=== PATIENT | female | born 1975 | race Asian ===

== ENCOUNTER 2017-03-25 21:28 | Emergency (ER) | payer MEDICARE, MEDICAID ==
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
[2017-03-25 22:06] LABS: BASOPHIL # 0.1 K/uL (0.0-0.2); BASOPHIL % 1.1 %; EOSINOPHIL # 0.1 K/uL (0.0-0.5); EOSINOPHIL % 1.9 %; HEMOGLOBIN 13.3 g/dL (10.0-15.0); IMMATURE GRANULOCYTE % 0.2 %; LYMPHOCYTE # 2.6 K/uL (0.8-4.0); LYMPHOCYTE % 49.8 %; MCH 30.9 pg (27.0-34.0); MCHC 34.1 gm/dL (32.0-36.5); MCV 90.5 fl (83.0-98.0); MONOCYTE # 0.4 K/uL (0.0-1.0); MONOCYTE % 6.8 %; NEUTROPHIL # (ANC) 2.1 K/uL (1.8-7.8); NEUTROPHIL % 40.2 %; NRBC % 0 /100WBC (0-0.00); PLATELET COUNT 322 K/uL (150-450); RBC 4.31 M/uL (3.50-5.50); RDW-CV 12.9 % (11.9-14.6); WBC 5.3 K/uL (4.0-11.0)
[2017-03-25 22:26] LABS: ALBUMIN 3.5 gm/dL (3.5-5.0); ALK PHOS 56 IU/L (33-138); ALT 52 IU/L (12-78); ANION GAP 12.8 (10.0-19.0); AST 34 IU/L (10-40); BLOOD UREA NITROGEN 12 mg/dL (6-24); CALCIUM 8.5 mg/dL (8.5-10.5); CHLORIDE 112 mMol/L (96-110); CO2 21 mMol/L (22-32); ESTIMATED GFR (MDRD EQUATION) > 60; POTASSIUM 3.8 mMol/L (3.7-5.1); SODIUM 142 mMol/L (135-145); TOTAL BILIRUBIN 0.4 mg/dL (0.0-1.5)
[2017-03-25 22:29] LABS: BILIRUBIN URINE NEGATIVE (NEGATIVE); BLOOD URINE NEGATIVE /UL (NEGATIVE); COLOR URINE YELLOW (YELLOW); GLUCOSE URINE NEGATIVE (NEGATIVE); KETONE URINE NEGATIVE (NEGATIVE); LEUKOCYTES URINE 100 /UL (NEGATIVE); NITRITE URINE POSITIVE (NEGATIVE); PROTEIN URINE 30 mg/dL (NEGATIVE); TURBIDITY URINE 2+ (CLEAR); UROBILINOGEN URINE 1 mg/dL (NORMAL)
[2017-03-25 22:41] LABS: BACTERIA URINE MANY (NEGATIVE); EPITHELIAL URINE 0-2 #/HPF (NEGATIVE); MUCUS URINE 2+ (NEGATIVE); RBC URINE RARE #/HPF (NEGATIVE)
[2017-03-25 22:50] LABS: AMPHETAMINE POSITIVE (NEGATIVE); BARBITURATE NEGATIVE (NEGATIVE); COCAINE NEGATIVE (NEGATIVE); OPIATES NEGATIVE (NEGATIVE)
[2017-04-18] MEDS ORDERED: NEURONTIN300 MG PO (02:02)
[2017-04-18] MEDS ORDERED: CARAFATE1 GM PO (02:03)
[2017-04-18] MEDS ORDERED: BENZTROPINE MESY2 MG PO (02:04)
[2017-04-18] MEDS ORDERED: GUANFACINE HCL2 MG PO (02:06)
[2017-04-18] MEDS ORDERED: NITROSTAT 0.40.4 MG SL (02:07)
[2017-04-18] MEDS ORDERED: INVEGA6 MG PO (02:09)
[2017-04-18] MEDS ORDERED: TOPAMAX50 MG PO (02:10)
[2017-04-18] MEDS ORDERED: LASIX20 MG PO (02:12)
[2017-04-18] MEDS ORDERED: (DPS FOR ANTIVE25 MG PO (02:13)
[2017-04-18] MEDS ORDERED: PRILOSEC20 MG PO (02:14)
[2017-04-18] MEDS ORDERED: EPIPEN-JR0.15 MG SUB-Q (02:21)
[2017-04-18] MEDS ORDERED: LOPRESSOR25 MG PO (02:22)
[2017-04-18] MEDS ORDERED: ASPIRIN325 MG PO (02:25)
[2017-04-18] MEDS ORDERED: KEPPRA500 M1 PO (02:26)
[2017-04-18] MEDS ORDERED: STRATTERA60 MG PO (02:59)
[2017-04-18] MEDS ORDERED: SAPHRIS10 MG SL (03:00)
== END 2017-03-25 23:05 | disposition disaster alternative care site (69) ==
LOC: GMED 21:28
PROVIDERS: Emergency Medicine
PROC: 0T9B70Z Drainage of Bladder with Drainage Device, Via Natural or Artificial Opening (ICD-10-PCS; principal; 2017-03-25)
DX: N39.0 Urinary tract infection, site not specified (principal); F15.129 Other stimulant abuse with intoxication, unspecified; F17.210 Nicotine dependence, cigarettes, uncomplicated; F20.9 Schizophrenia, unspecified; F31.9 Bipolar disorder, unspecified; Z79.899 Other long term (current) drug therapy; Z91.011 Allergy to milk products; Z88.8 Allergy status to other drugs, medicaments and biological substances
CPT/HCPCS: G0480

== ENCOUNTER 2017-04-20 14:22 | Observation (INO) | payer MEDICARE, MEDICAID ==
[~2017-04-20] VITALS: Ht 152.4 cm; Wt 59.4 kg
--- NOTE | ~2017-04-20 | HP ---
PATIENT'S NAME: SIOBHAN CUNNINGHAM [facility] AGE: 42 Y [address] ROOM: [place] [address] LOCATION: [facility] ADMIT DATE: 04/20/2017 History & Physical DISCHARGE DATE: FAMILY PHYSICIAN: PHYSICIAN, UNKNOWN ATTENDING PHYSICIAN: Cesar Mcallister DATE OF SERVICE: CHIEF COMPLAINT: Chest pain. HISTORY OF PRESENTING ILLNESS: This 42-year-old female with a dubious history of coronary artery disease status post PCI with stenting was transferred to [facility] from [facility] with a chief complaint of chest pain. She was admitted there for apparent suicidal ideations a couple of days ago. At some point, she began to complain of chest pain and was transferred to our emergency room for definitive evaluation and management. On her arrival here, she was lethargic but arousable. She did complain of chest pain, but was not really able to characterize it. She did admit to me that it was like pain she had had with "heart attack" in the past. She was unable to recount for me where she received cardiac care. Presently, her pain seems to be getting "better." The patient is a very poor historian. She does respond briskly to noxious stimuli, but unable to provide many comprehensible answers to my questions. She does complain of headache pain, complains of dizziness and nausea, but also reports feeling hungry. She also complains of diffuse scotomata which "come and go." She has not had any problems with chewing or swallowing. She denies heartburn or dyspepsia. Chest pain is in the middle of her chest but she cannot characterize it beyond that. She denies shortness of breath or cough. No abdominal pain. She has been stooling regularly and denies any dysuria, frequency, urgency, or hematuria. No numbness or tingling in her extremities or any associated physical or constitutional complaints. PAST MEDICAL HISTORY: ALLERGIES: LAMICTAL AND LACTOSE. ILLNESSES: 1. Paranoid-type schizophrenia. 2. Bipolar disorder. 3. Polysubstance abuse. 4. Questionable history of coronary artery disease status post PCI with PATIENT'S NAME: SIOBHAN CUNNINGHAM [facility] AGE: 42 Y [address] ROOM: [place] [address] LOCATION: [facility] ADMIT DATE: 04/20/2017 History & Physical DISCHARGE DATE: FAMILY PHYSICIAN: PHYSICIAN, UNKNOWN ATTENDING PHYSICIAN: Cesar Mcallister 5. Self-reported history of breast cancer, status post mastectomy (she still has her breasts). 6. Chronic dyspepsia. 7. Essential hypertension. 8. Lower extremity edema. CURRENT MEDICATIONS: 1. Gabapentin 300 mg p.o. q.i.d. 2. Carafate 1 g p.o. q.i.d. 3. Cogentin 2 mg p.o. b.i.d. 4. Guanfacine 2 mg p.o. at bedtime. 5. Nitroglycerin p.r.n. 6. Invega 6 mg p.o. q. day. 7. Topamax 50 mg p.o. q.a.m. 8. Lasix 20 mg p.o. q. day. 9. Meclizine 25 mg p.o. t.i.d. 10. Prilosec 20 mg p.o. b.i.d. 11. Lopressor 25 mg p.o. b.i.d. 12. Aspirin 325 mg p.o. t.i.d. 13. Keppra 1000 mg p.o. q. day. 14. Atomoxetine 60 mg p.o. at bedtime. 15. Saphris 10 mg p.o. at bedtime. FAMILY HISTORY: Negative for heart attack or stroke. SOCIAL HISTORY: She is and lives in [place], [place]. She is currently disabled. She has a significant history of polysubstance use and abuse including methamphetamine, tobacco in the form of cigarettes, and marijuana. She cannot quantify her usage of any of these drugs with me. REVIEW OF SYSTEMS: As per HPI. All other organ systems reviewed and are negative. OBJECTIVE: VITAL SIGNS: Temperature 98.6, pulse 91, respirations 74, blood pressure 96/49, and O2 saturation 99% on room air. GENERAL: She is awake, but lethargic. She demonstrates some aversion type behavior. SKIN: Supple, benedict, warm, and dry. She has some acne, but there are no active skin rashes. There are some tattoos about the upper extremities. HEENT: Otherwise, normocephalic. Sclerae nonicteric. Pupils equal, round, and reactive to light and accommodation. Extraocular movements appear intact. PATIENT'S NAME: SIOBHAN CUNNINGHAM [facility] AGE: 42 Y [address] ROOM: [id number] [place], [place] [address] LOCATION: [facility] ADMIT DATE: 04/20/2017 History & Physical DISCHARGE DATE: FAMILY PHYSICIAN: PHYSICIAN, UNKNOWN ATTENDING PHYSICIAN: Cesar Mcallister Nasal turbinates normal in appearance. Oropharynx clear. Mucous membranes are pink and moist. Dentition is in very poor repair. NECK: Supple. No masses. No thyromegaly. No JVD. CHEST: Wall is symmetrical. HEART: Regular without murmurs. LUNGS: Clear bilaterally. No wheezes or crackles heard. ABDOMEN: Soft, nontender. Bowel sounds present. No mass or hepatosplenomegaly. GENITOURINARY: Not done. RECTAL: Not done. EXTREMITIES: Display no significant clubbing, cyanosis, or edema. NEUROLOGIC: Mentation is slowed. She is lethargic, but there are no focal deficits. She moves all extremities equally. LABORATORY AND X-RAY DATA: A 12-lead EKG shows no acute abnormalities. Chest x-ray shows no acute cardiopulmonary abnormalities. CBC showed a white blood cell count of 5.9, hemoglobin of 13.4, hematocrit 40.1, and platelets 283,000. Chemistries revealed BUN and creatinine of 14 and 1.0 respectively. Sodium and potassium of 142 and 3.8, chloride and CO2 are 110 and 25, calcium is 8.0, AST and ALT of 29 and 39, bilirubin is 0.3, magnesium is 2.2, and glucose is 99. PT and PTT are 10.0 and 25 respectively. Cardiac enzymes were negative with CPK 88, troponin I is less than 0.04, and CK-MB is less than 0.5. Ethanol, acetaminophen, and salicylic acid levels were all below limits of detectability. TSH was slightly low at 0.307. Urine drug screen, positive for amphetamines. ASSESSMENT AND PLAN: 1. Chest pain. We will admit for observation and trend cardiac enzymes. I placed her on the chest pain pathway. Her pain is improving and difficult to characterize. We will hold off on heparinization. We will also try to minimize opioid analgesic therapy. We will try to obtain old records regarding her history of coronary artery disease and percutaneous coronary intervention with stenting if they indeed exist. We will consider Cardiology consultation and cardiac stress testing tomorrow. 2. Essential hypertension. Appears to be adequately controlled. We will monitor and try to make adjustments as necessary. 3. Gastroesophageal reflux disease. Historically controlled and currently asymptomatic on PPI therapy. 4. Bipolar disorder with history of suicidal ideation. We will probably need to follow q. 15 minute checks and plan a referral back to [facility] depending on a cardiac workup above. 5. Paranoid-type schizophrenia. We will plan to continue with her home antipsychotic regimen. 6. Polysubstance abuse. We will plan to utilize nicotine supplementation PATIENT'S NAME: SIOBHAN CUNNINGHAM [facility] AGE: 42 Y [address] ROOM: [id number] [place], [place] [address] LOCATION: [facility] ADMIT DATE: 04/20/2017 History & Physical DISCHARGE DATE: FAMILY PHYSICIAN: PHYSICIAN, UNKNOWN ATTENDING PHYSICIAN: Cesar Mcallister and monitor for signs of withdrawal while she is inpatient. 7. Deep venous thrombosis prophylaxis. We will follow the venous thromboembolism protocol. MD MEHDI ABRAHAM/dick /[id number] D: T: [id number] HISTORY & PHYSICAL
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
--- NOTE | ~2017-04-20 | ER ---
PATIENT'S NAME: [facility] AGE: 42 Y [address] ROOM: [place] [address] LOCATION: [facility] ADMIT DATE: 04/20/2017 ER/Outpatient Report DISCHARGE DATE: FAMILY PHYSICIAN: PHYSICIAN, UNKNOWN ATTENDING PHYSICIAN: Cesar Mcallister Time of Arrival: 1422 hours. Time of Evaluation: 1425 hours. IDENTIFICATION: A 42-year-old female. CHIEF COMPLAINT: Chest pain. HISTORY OF PRESENT ILLNESS: The patient is a 42-year-old female with known coronary artery disease, who was at [facility] with a history of schizophrenia and psychosis, who today began complaining of substernal chest pain all across her anterior chest radiating to her left arm. On arrival here, the patient has kind of mumbled garbled speech, does not really answer much for questions. Denies any other associated symptoms. ALLERGIES: TO LAMICTAL AND LACTOSE. CURRENT MEDICATIONS: Per the [facility] medical reconciliation. MEDICAL PROBLEMS: Coronary artery disease, seizure disorder, Crohn's disease, schizophrenia, legally blind. She has neurogenic bladder and self-caths, polysubstance drug abuse. PREVIOUS SURGERIES: Tonsillectomy and section. REVIEW OF SYSTEMS: Really unable to obtain from the patient. SOCIAL HISTORY: The patient is currently at [facility] since 04/18/2017. She lives in [place], [place]. Tobacco use, she does not quantitate it how much, but history reflects a history of methamphetamine abuse, marijuana, cigarettes. PATIENT'S NAME: [facility] AGE: 42 Y [address] ROOM: [place] [address] LOCATION: [facility] ADMIT DATE: 04/20/2017 ER/Outpatient Report DISCHARGE DATE: FAMILY PHYSICIAN: PHYSICIAN, UNKNOWN ATTENDING PHYSICIAN: Cesar Mcallister FAMILY HISTORY: Unable to obtain. PHYSICAL EXAMINATION: VITAL SIGNS: Weight 59 kg, blood pressure 96/49, pulse 91, respirations 14, temperature 98.6, and saturations 99%. GENERAL: A 42-year-old female, in no acute distress. HEENT: Unremarkable. She is very unkempt. LUNGS: Clear to auscultation. HEART: Regular rate and rhythm. ABDOMEN: Soft, nondistended, nontender. She does have chest wall tenderness, which reproduces her pain. LABORATORY DATA AND X-RAYS: Chest x-ray, no acute process. Pending Radiology over-read. EMERGENCY DEPARTMENT COURSE: An IV has been initiated. HCG is less than 1. She received [address] to the hospital. D-dimer 0.20. CBC is within normal limits. A 12- lead EKG pre-hospital showed no acute ST elevation or depression. 12-lead EKG here, LVH by voltage. No acute ST elevation or depression. Normal sinus rhythm. Chemistry panel, cardiac enzymes, all negative and unremarkable. IMPRESSION AND PLAN: 1. Chest pain in the setting of known coronary artery disease. The patient is a difficult historian with her psychosis. She will be admitted for serial EKG and enzymes by Dr. Mcallister. Dr. Mcallister evaluated her here in the hospital. She was asleep throughout her stay here in the emergency room and did not require any pain medication. She did receive four baby aspirin en route. 2. Mild hypotension. The patient's blood pressure was 96 systolic on arrival. She did have a pressure that dropped to the 80s. She was given 1 L fluid bolus, and blood pressures were then improved to the low 100 systolic. She remained hemodynamically stable throughout her stay here in the emergency room and was taken to PCU in stable condition. MD NAVI MILLER/dick /[id number] d: 04/20/172229 t: 04/25/17 0701, OUTPATIENT REPORT
--- NOTE | ~2017-04-20 | DS ---
PATIENT'S NAME: SIOBHAN CUNNINGHAM [facility] AGE: 42 Y [address] ROOM: [address] [place], [place] [address] LOCATION: GPCU ADMIT DATE: 04/20/2017 Discharge Summary DISCHARGE DATE: 04/22/2017 FAMILY PHYSICIAN: Physician, Unknown ATTENDING PHYSICIAN: Candido Becker FINAL DIAGNOSES: 1. Atypical chest pain. 2. Hypertension. 3. Paranoid schizophrenia. 4. Neuropathy. FEED HANDLER ON THE CASE: Cresencio Atkins MD, for Cardiology. HOSPITAL COURSE: Please see details of admission in H and P by Dr. Becker. The patient was admitted with acute chest pain and transferred from [facility]. She was started on acute coronary artery syndrome pathway. The patient did have a STEVE risk score of 3, deeming her intermediate risk. The patient was started on aspirin, enalapril, Lipitor, and Lopressor. Cheung catheter was placed for accurate I's and O's. Her fluids were continued at 75 mL/h. On the , Cardiology consulted. They did review old records. Enzymes were negative to date. Two further sets were ordered and we did get an echo. The patient remained sleepy and somewhat confused throughout her stay. On the , Cardiology reported that the echo was normal and there would be no further workup from a cardiac standpoint and the patient if safe would be discharged back to [facility]. Dr. Teague agreed with this plan. Her fluids were discontinued. The patient was ambulated in the booth and showered. Possible fluid was removed and it was felt that the patient could safely go to [facility] for further evaluation and treatment. DIAGNOSTICS: The patient had a chest x-ray on the which was normal. On admission, sodium 142, potassium 3.8, chloride 110, bicarb 25, glucose 99, BUN 14, creatinine 1.0. CPK is 85, CK-MB 0.5, troponin less than 0.04. Total cholesterol 85, triglycerides 78, HDL 26, LDL 44. Repeat CPKs were 123 and 113. Repeat CK-MBs were less than 0.5 and 0.6. Troponins were all negative. On admission, hemogram was within normal limits. Echo showed normal left ventricular contractility. EF was 60% to 65%. All valves and chambers were within normal. Urine culture did show E coli greater than 100,000 colonies; however, the patient was completely asymptomatic and thus not treated. DISCHARGE INSTRUCTIONS: The patient is transferred via ambulance to [facility]. Her diet is regular. ACTIVITIES: As tolerated. PATIENT'S NAME: SIOBHNA CUNNINGHAM [facility] AGE: 42 Y [address] ROOM: [place] [address] LOCATION: GPCU ADMIT DATE: 04/20/2017 Discharge Summary DISCHARGE DATE: 04/22/2017 FAMILY PHYSICIAN: Physician, Unknown ATTENDING PHYSICIAN: Candido Becker DISCHARGE MEDICATIONS: Include, 1. Neurontin 300 mg 4 times daily. 2. Guanfacine 2 mg at bedtime. 3. Keppra 1000 mg daily. 4. Lopressor 25 mg p.o. twice daily. Hold if less than 110 or heart rate less than 60. 5. Nicotine patch 21 mg daily. 6. Invega 6 mg every night at bedtime. 7. Saphris 10 mg sublingual at bedtime. 8. Protonix 40 mg daily. 9. Carafate 1 g p.o. 4 times daily. 10. Topamax 50 mg at bedtime. 11. Tylenol 650 mg every 4 hours as needed. 12. Benadryl 25 mg at bedtime as needed. 13. Colace 100 mg twice daily as needed. 14. EpiPen as needed. We do appreciate participating in this patient's care. Thank you very much for the ability to serve her while hospitalized at [facility]. JULI MANZANARES FOR CANDIDO BECKER MD MICHELLE/modl /[id number] d: 04/23/170 t: 04/30/17 1131, DISCHARGE SUMMARY
--- NOTE | ~2017-04-20 | ECHO ---
Transthoracic Echocardiography Report (TTE) Demographics Patient Name SIOBHAN CUNNINGHAM Date of Study 04/21/2017 Patient Number [id number] Visit Number [id number] Date of 1975 Room Number G6303 Accession Number [id number] Gender Female Age 42 year(s) Referring Ary Jordan MD Electrical Equipment Assembler Irma Asher RVT, Physician RDCS Physician Interpreting Wilbert Dupont MD Chip Tuner Physician Supervising Ordering Physician Wilbert Dupont MD, MD/P Nurse Stress Managing Consultant Clinical Professor Conclusions Contractility Score Summary Normal Left Ventricular contractility was noted. Summary The estimated left ventricular ejection fraction is 60-65%. The left ventricle is normal in size . Diastolic assessment reveals normal relaxation. Mild tricuspid regurgitation by color Doppler. Procedure Type of Study TTE procedure:2D Echocardiogram. Procedure Date Date: 04/21/2017 Start: 11:01 AM Study Location: Inpatient Portable Technical Quality: Good visualization Indications:Chest pain. Appropriate Use Criteria: 8 Patient Status: Routine Rhythm: NSR HR: 83 bpm BP: 103/62 mmHg M-Mode/2D Measurements LV Diastolic Dimension: 3.81 cm LV Systolic Dimension: 2.45 cm LV Septum Diastolic: 1.14 cm LV PW Diastolic: 0.79 cm AO Root Dimension: 2.6 cm Cardiac Output: 2.98 l/min AV Cusp Separation: 1.5 cm RV Diastolic Dimension: 2.88 cm LA volume: 36 ml LVOT: 1.8 cm RV Base: 2.47 cm LVOT VTI: 14.1 cm RV Mid: 1.29 cm LV Stroke volume: 35.86 ml TAPSE: 1.8 cm TDI-S': 8.55 cm/s Doppler Measurements AV Peak Velocity: 1.37 m/s MV Peak E-Wave: 0.49 m/s AV Peak Gradient: 7.51 mmHg MV Peak A-Wave: 0.65 m/s AV Mean Gradient: 4 mmHg MV E/A Ratio: 0.75 LVOT Peak Velocity: 0.74 m/s MV P1/2t: 66 msec TR Gradient:22.66 mmHg PV Peak Velocity: 0.73 m/s Estimated RAP:5 mmHg PV Peak Gradient: 2.11 mmHg Estimated RVSP: 28 mmHg Estimated PASP: 27.66 mmHg E' Septal Velocity: 0.1 m/s A' Septal Velocity: 0.11 m/s E' Lateral Velocity: 0.16 m/s A' Lateral Velocity: 0.1 m/s Findings Left Ventricle The left ventricle is normal in size . Diastolic assessment reveals Grade I diastolic dysfunction. Right Ventricle Normal right ventricle structure and function. Left Atrium Normal left atrial size. There is no evidence of patent foramen ovale or atrial septal defect by color Doppler. Right Atrium Normal right atrial size. IVC measures 1.59 cm with inspiratory collapse. Mitral Valve Normal mitral valve structure and function. Trivial mitral regurgitation by color Doppler. Aortic Valve Normal aortic valve structure and function. Tricuspid Valve Mild tricuspid regurgitation by color Doppler. Pulmonic Valve Normal pulmonic valve structure and function. Pericardial Effusion No evidence of pericardial effusion. Miscellaneous Visualized portions of the aortic root and ascending aorta appear normal in size. Pleural Effusion No evidence of pleural effusion. Contractility Score LV regional wall motion:(0-Non visualized 1-Normal 2-Hypokinesis 3-Akinesis 4-Dyskinesis 5-Aneurysm) Signature dtt: Cresencio Atkins (cardio) dtd: 04/21/17 1101 Physician Self Edit
[~2017-04-20 14:22] MED LIST changes: -LIPITOR80 MG PO
[2017-04-20 15:29] LABS: BASOPHIL % 0.7 %; EOSINOPHIL # 0.1 K/uL (0.0-0.5); HEMATOCRIT 40.1 % (33.0-46.0); HEMOGLOBIN 13.4 g/dL (10.0-15.0); IMMATURE GRANULOCYTE % 0.3 %; LYMPHOCYTE % 33.2 %; MCH 30.8 pg (27.0-34.0); MCHC 33.4 gm/dL (32.0-36.5); MCV 92.2 fl (83.0-98.0); MONOCYTE # 0.4 K/uL (0.0-1.0); MONOCYTE % 6.6 %; MPV 8.8 fl (9.4-12.4); NEUTROPHIL # (ANC) 3.4 K/uL (1.8-7.8); NEUTROPHIL % 57.2 %; NRBC % 0 /100WBC (0-0.00); PLATELET COUNT 283 K/uL (150-450); RBC 4.35 M/uL (3.50-5.50); RDW-CV 12.9 % (11.9-14.6); WBC 5.9 K/uL (4.0-11.0)
[2017-04-20 15:37] LABS: INR - (THERAPEUTIC) 0.95 (0.92-1.07); PTT 25 SECONDS (25-32)
[2017-04-20 15:52] LABS: ALBUMIN 3.1 gm/dL (3.5-5.0); ALK PHOS 53 IU/L (33-138); ALT 39 IU/L (12-78); ANION GAP 10.8 (10.0-19.0); AST 29 IU/L (10-40); BLOOD UREA NITROGEN 14 mg/dL (6-24); CHLORIDE 110 mMol/L (96-110); CO2 25 mMol/L (22-32); CPK 88 IU/L (21-215); MAGNESIUM 2.2 mg/dL (1.8-2.6); POTASSIUM 3.8 mMol/L (3.7-5.1); SODIUM 142 mMol/L (135-145); TOTAL PROTEIN 6.3 g/dL (6.0-8.4)
[2017-04-20 15:53] LABS: TOTAL BILIRUBIN 0.3 mg/dL (0.0-1.5)
[2017-04-20] MEDS ORDERED: PRILOSEC20 MG PO (18:58)
[2017-04-21 10:16] LABS: CPK 123 IU/L (21-215)
[2017-04-22] MEDS ORDERED: LOPRESSOR25 MG PO (14:58)
[2017-04-22] MEDS ORDERED: LIPITOR80 MG PO (14:58)
[2017-04-22] MEDS ORDERED: STRATTERA60 MG PO (15:01)
== END 2017-04-22 11:10 ==
LOC: GMED 14:22 → GPCU 17:32
PROVIDERS: Family Medicine; Nurse Practitioner Acute Care; ADMIT Family Medicine
DX: R07.89 Other chest pain (principal); I10 Essential (primary) hypertension; F20.0 Paranoid schizophrenia; G62.9 Polyneuropathy, unspecified; F31.9 Bipolar disorder, unspecified; I95.9 Hypotension, unspecified; F19.10 Other psychoactive substance abuse, uncomplicated; J44.9 Chronic obstructive pulmonary disease, unspecified; K21.9 Gastro-esophageal reflux disease without esophagitis; F17.210 Nicotine dependence, cigarettes, uncomplicated; I25.10 Atherosclerotic heart disease of native coronary artery without angina pectoris; M19.90 Unspecified osteoarthritis, unspecified site; Z88.8 Allergy status to other drugs, medicaments and biological substances; Z79.899 Other long term (current) drug therapy; Z79.82 Long term (current) use of aspirin
CPT/HCPCS: G0378; J7030

== ENCOUNTER → 2017-04-20 | Outpatient (CLI) | payer MEDICARE, MEDICAID ==
[~2017-04-20] MED LIST: (DPS FOR ANTIVE25 MG PO; ASPIRIN325 MG PO; BENZTROPINE MESY2 MG PO; CARAFATE1 GM PO; EPIPEN-JR0.15 MG SUB-Q; GUANFACINE HCL2 MG PO; INVEGA6 MG PO; KEPPRA500 M1 PO; LASIX20 MG PO; LIPITOR80 MG PO; LOPRESSOR25 MG PO; NEURONTIN300 MG PO; NITROSTAT 0.40.4 MG SL; PRILOSEC20 MG PO; SAPHRIS10 MG SL; STRATTERA60 MG PO; TOPAMAX50 MG PO
== END | disposition disaster alternative care site (69) ==
LOC: GAMB 13:56
DX: R07.9 Chest pain, unspecified (principal); M79.602 Pain in left arm; J45.909 Unspecified asthma, uncomplicated; J44.9 Chronic obstructive pulmonary disease, unspecified; K21.9 Gastro-esophageal reflux disease without esophagitis; G40.909 Epilepsy, unspecified, not intractable, without status epilepticus; K50.90 Crohn's disease, unspecified, without complications; Z79.899 Other long term (current) drug therapy; Z88.8 Allergy status to other drugs, medicaments and biological substances
CPT/HCPCS: A0425; A0427